=== PATIENT | female | born 1985 | race Caucasian/White ===

== ENCOUNTER 2019-03-26 13:38 | Outpatient (REF) | payer BC, SELFPAY ==
--- NOTE | 2019-03-26 13:30 | PAPFT_PTH ---
PATIENT: Jeimy Chandler LOC: [facility] U#:[id number] AGE/SX: 33/F ROOM: RE03/26/[address]: BIRDIE Jenkins : 1985 BED: DIS: 03/26/2019 SPEC #: [id number] RECD: 03/26/19 17:59 STATUS: LAURA REMitchel #: [id number] RESHMA: 03/26/19 13:[address]: Farzana Carcamo DEPT: [facility] Cytology RECD BY: Christiane Nguyen ENTERED: 03/26/19 17:59 SP TYPE: PAPFT OTHR DR: Elena Hardy Tissues: 1 - CX/ENDOCX FOR PAP SMEARS Procedures: PAP THIN PREP/UVM Screening HPV DNA PROBE Comments: [id number]
== END 2019-03-26 13:58 ==
LOC: LBN 13:38
PROVIDERS: PCP Nurse Practitioner; Visit Provider Nurse Practitioner Family
DX: Z12.4 Encounter for screening for malignant neoplasm of cervix (principal); Z11.51 Encounter for screening for human papillomavirus (HPV)
CPT/HCPCS: 88142; 87624

== ENCOUNTER 2019-04-03 02:37 | Outpatient (CLI) | payer BC, SELFPAY ==
[2019-04-03 09:07] LABS: HCT 38.1 % (36.0-46.0); HGB 12.3 g/dL (12.0-15.5); Mean Corp. HGB Concentration 32.3 g/dL (32.0-36.0); Mean Corpuscular Hemoglobin 29.6 pg (27.0-33.0); Mean Corpuscular Volume 91.8 fL (80-95); Mean Platelet Volume 10.1 fL (8.0-11.0); Platelet Count 294 x1000/uL (130-400); RBC 4.15 m/cumm (4.00-5.20); White Blood Cell Count 7.38 k/cumm (4.4-10.8)
[2019-04-03 10:08] LABS: Iron 131 ug/dL (50-175)
[2019-04-03 10:31] LABS: ALT 31 U/L (12-78); AST 24 U/L (15-37); Albumin 3.5 g/dL (3.4-5.0); Alkaline Phosphatase 64 U/L (46-116); BUN 14 mg/dL (7-18); Bilirubin, Total 0.4 mg/dL (0.2-1.0); CREATININE 0.82 mg/dL (0.55-1.02); Calcium 9.3 mg/dL (8.5-10.1); Chloride 100 mmol/L (98-107); Ferritin 51 ng/mL (8-388); Glucose 82 mg/dL (70-100); Potassium 4.1 mmol/L (3.5-5.1); Sodium 135 mmol/L (136-145); Total Protein 6.6 g/dL (6.4-8.2); Vitamin B12 1742 pg/mL (193-986)
[2019-04-03 10:47] LABS: Folate > 20.0 ng/mL (8.6-20.0)
[2019-04-06 07:52] LABS: Vitamin D 25 Total 63.4 ng/ml (30-100)
== END 2019-04-03 02:57 ==
PROVIDERS: PCP Nurse Practitioner; Visit Provider Nurse Practitioner Family
DX: E83.10 Disorder of iron metabolism, unspecified (principal); K90.9 Intestinal malabsorption, unspecified; E55.9 Vitamin D deficiency, unspecified; Z98.84 Bariatric surgery status
CPT/HCPCS: 36415; 80053; 82306; 85027; 82607; 82728; 82746; 83540

== ENCOUNTER 2020-03-23 02:30 | Outpatient (CLI) | payer OTHER, SELFPAY ==
[2020-03-23 13:36] LABS: HCT 40.1 % (36.0-46.0); HGB 12.9 g/dL (12.0-15.5); Mean Corp. HGB Concentration 32.2 g/dL (32.0-36.0); Mean Corpuscular Hemoglobin 29.6 pg (27.0-33.0); Mean Platelet Volume 9.8 fL (8.0-11.0); Platelet Count 345 x1000/uL (130-400); RBC 4.36 m/cumm (4.00-5.20); RBC Distribution Width 12.9 % (11.7-14.6); White Blood Cell Count 4.74 k/cumm (4.4-10.8)
[2020-03-23 14:47] LABS: Iron 116 ug/dL (50-170)
[2020-03-23 15:09] LABS: ALT 49 U/L (14-59); AST 32 U/L (15-37); Alkaline Phosphatase 82 U/L (46-116); Anion Gap 4.9 mmol/L (3-11); BUN 10 mg/dL (7-18); Bilirubin, Total 0.6 mg/dL (0.2-1.0); CO2 30.1 mmol/L (21.0-32.0); CREATININE 0.73 mg/dL (0.55-1.02); Calcium 9.2 mg/dL (8.5-10.1); Chloride 103 mmol/L (98-107); Ferritin 27 ng/mL (8-252); Glucose 82 mg/dL (74-106); Potassium 3.8 mmol/L (3.5-5.1); Sodium 138 mmol/L (136-145); Total Protein 6.8 g/dL (6.4-8.2); Vitamin B12 646 pg/mL (193-986)
[2020-03-23 15:11] LABS: Folate > 20.0 ng/mL (8.6-20.0)
[2020-03-24 05:05] LABS: Vitamin D 25 Total 49.6 ng/ml (30-100)
[2020-03-26 12:56] LABS: Thiamine (Vitamin B1), WB 138 nmol/L (70-180)
== END 2020-03-23 02:50 ==
PROVIDERS: PCP Nurse Practitioner; Visit Provider Nurse Practitioner Family
DX: E61.1 Iron deficiency (principal); Z98.84 Bariatric surgery status
CPT/HCPCS: 36415; 80053; 82306; 85027; 82607; 82728; 82746; 83540; 84425

== ENCOUNTER 2020-05-30 02:30 | Outpatient (CLI) | payer BC, SELFPAY ==
[2020-05-30 15:52] LABS: Kit/Specimen SENT
[2020-05-30 15:58] LABS: Abs Immature Grans 0.03 10^3/uL (0.0-0.06); Absolute Basophil Count 0.03 10^3/uL (0.0-0.2); Absolute Lymphocyte Count 2.32 10^3/uL (1.2-3.4); Absolute Monocyte Count 0.72 10^3/uL (0.1-0.8); Absolute Neutrophil Count 5.88 10^3/uL (1.2-6.7); Basophils % 0.3; Eosinophils % 1.1; HCT 38.8 % (36.0-46.0); HGB 12.7 g/dL (11.2-15.7); Immature Grans % 0.3; Lymphocytes % 25.6; MCHC 32.7 % (32.0-36.0); MCV 91.7 fL (80-95); MPV 10.7 fL (8.0-11.0); Monocytes % 7.9; Neutrophils % 64.8; Nucleated RBC 0 %; Platelet Count 287 10^3/uL (130-400); RBC 4.23 10^6/uL (3.93-5.22); RDW 12.6 % (11.7-14.6); RDW-SD 42.1 fL; WBC 9.08 10^3/uL (4.4-10.8)
[2020-05-30 17:16] LABS: *AMPHETAMINES SCREEN URINE Negative (Negative); *BARBITURATES SCREEN URINE Negative (Negative); *BENZODIAZEPINES SCREEN URINE Negative (Negative); Cannabinoids THC Negative (Negative); Cocaine Screen,Urine Negative (Negative); METHADONE URINE SCREEN Negative (Negative); OPIATES URINE SCREEN Negative (Negative)
[2020-05-30 17:24] LABS: Tricyclic Antidepressants Negative (Negative)
[2020-05-30 17:26] LABS: TSH (W/Ref FT4) 1.35 uIU/mL (0.36-3.74)
[2020-05-31 09:12] LABS: Hepatitis B Surface Ag Negative (Negative)
[2020-05-31 09:38] LABS: Rubella IgG Ab (UVM) Positive (See Note); Varicella IgG Antibody Positive (See Note)
[2020-05-31 09:49] LABS: HIV-1/2 Ag & Ab Screen Negative (Negative)
[2020-05-31 10:00] LABS: Hepatitis C Ab w Rflx HCV PCR Negative (Negative)
[2020-05-31 15:25] LABS: Chlamydia Result Negative (Negative); GC Result Negative (Negative)
[2020-06-01 11:05] LABS: Syphilis Total Ab w/Reflex Nonreactive (Nonreactive)
[2020-06-04 15:16] LABS: Buprenorphine Negative; Norbuprenorphine Negative
[2020-06-06 15:44] LABS: Specimen WB Whole Blood
== END 2020-05-30 02:50 ==
PROVIDERS: Advanced Practice Midwife; PCP Nurse Practitioner; Visit Provider Advanced Practice Midwife
DX: Z34.81 Encounter for supervision of other normal pregnancy, first trimester (principal); Z36.89 Encounter for other specified antenatal screening; Z11.4 Encounter for screening for human immunodeficiency virus [HIV]; Z11.59 Encounter for screening for other viral diseases; Z01.84 Encounter for antibody response examination; Z11.3 Encounter for screening for infections with a predominantly sexual mode of transmission
CPT/HCPCS: 36415; 80307; 81329; 86787; 86803; 86850; 86900; 86901; 87340; 87389; 87491; 87591; 84443; 85025; 86762; 86780; 87086

== ENCOUNTER 2020-07-04 01:18 | Outpatient (CLI) | payer BC, SELFPAY ==
--- NOTE | 2020-07-04 14:00 | DI.US_ITS ---
EXAM: US OB 2-3 TRIMESTER CLINICAL HISTORY: routine pnc Z34.90 SUPERVISION NORMAL TECHNIQUE: Ultrasound performed using standard protocol. COMPARISON: US OB US 2-3 TRIMESTER TRANSABD*P from 12/21/2011 FINDINGS: Ob ultrasound was performed utilizing 2nd trimester protocol. biometry is consistent with gest ational age of 17 weeks 0 days and an EDC of December 12, 2020. Placenta is posterior with no evidence of placenta previa. There is visually a normal quantity of am niotic fluid. heart rate is 153 BPM. anomaly screen is within normal limits as per the attached checklist. IMPRESSION: DATA REPOSITORY:
== END 2020-07-04 01:38 ==
PROVIDERS: PCP Nurse Practitioner; Visit Provider Advanced Practice Midwife
DX: Z34.92 Encounter for supervision of normal pregnancy, unspecified, second trimester (principal)
CPT/HCPCS: 76805

== ENCOUNTER 2020-08-12 08:02 | Outpatient (CLI) | payer BC, SELFPAY ==
[2020-08-15 06:08] LABS: Patient Race White; SARS-CoV-2 RNA Undetected (Undetected); SARS-CoV-2 Specimen Source Nasopharynx
== END 2020-08-12 08:22 ==
PROVIDERS: PCP Nurse Practitioner; Visit Provider Advanced Practice Midwife
DX: Z34.92 Encounter for supervision of normal pregnancy, unspecified, second trimester (principal); R68.89 Other general symptoms and signs; Z20.828 Contact with and (suspected) exposure to other viral communicable diseases
CPT/HCPCS: 87449; U0003

== ENCOUNTER 2020-09-26 02:53 | Outpatient (CLI) | payer BC, SELFPAY ==
[2020-09-26 10:20] LABS: HCT 35.3 % (36.0-46.0); HGB 11.5 g/dL (11.2-15.7); MCH 29.9 pg (27.0-33.0); MCHC 32.6 % (32.0-36.0); MCV 91.7 fL (80-95); MPV 9.9 fL (8.0-11.0); Platelet Count 386 10^3/uL (130-400); RBC 3.85 10^6/uL (3.93-5.22); RDW 12.8 % (11.7-14.6); WBC 9.86 10^3/uL (4.4-10.8)
[2020-09-26 10:30] LABS: Glucose,1 Hr (Glucola) 56 mg/dL (80-140)
== END 2020-09-26 03:13 ==
PROVIDERS: PCP Nurse Practitioner; Visit Provider Advanced Practice Midwife
DX: Z34.93 Encounter for supervision of normal pregnancy, unspecified, third trimester (principal); Z3A.28 28 weeks gestation of pregnancy
CPT/HCPCS: 36415; 82950; 85027

== ENCOUNTER 2020-11-28 14:37 | Outpatient (REF) | payer BC, SELFPAY ==
[2020-11-28 14:04] LABS: *AMPHETAMINES SCREEN URINE Negative (Negative); *BARBITURATES SCREEN URINE Negative (Negative); *BENZODIAZEPINES SCREEN URINE Negative (Negative); Cannabinoids THC Negative (Negative); Cocaine Screen,Urine Negative (Negative); METHADONE URINE SCREEN Negative (Negative); OPIATES URINE SCREEN Negative (Negative); Tricyclic Antidepressants Negative (Negative)
[2020-12-06 06:27] LABS: Buprenorphine Negative ng/mL (Cutoff: 5.0); Norbuprenorphine Negative ng/mL (Cutoff: 2.5)
== END 2020-11-28 14:38 | disposition home or self-care (01) ==
LOC: LBN 14:37
PROVIDERS: PCP Nurse Practitioner; Visit Provider Advanced Practice Midwife
DX: Z34.93 Encounter for supervision of normal pregnancy, unspecified, third trimester (principal)
CPT/HCPCS: 80307; 87081

== ENCOUNTER 2020-12-13 19:28 | Outpatient (REF) | payer BC, SELFPAY ==
[2020-12-13 15:04] LABS: PROTEIN 30.8 mg/dL
[2020-12-13 15:06] LABS: COMMENT (LAB VIEW ONLY) 176.62 mg/dL; Prot/Crea Ur Ratio 0.17
== END 2020-12-13 19:29 | disposition home or self-care (01) ==
LOC: NCHCN 19:28
PROVIDERS: PCP Nurse Practitioner; Visit Provider Advanced Practice Midwife
DX: R03.0 Elevated blood-pressure reading, without diagnosis of hypertension (principal)
CPT/HCPCS: 82565; 84156

== ENCOUNTER 2020-12-15 05:17 | Inpatient (IN) | payer BC, SELFPAY ==
[2020-12-15] VITALS (21 sets, daily range): BP systolic 120–167; BP diastolic 63–97; PULSE 62–96; RESP 16–20; TEMP 36.3–37.2; O2SAT 95–100
[2020-12-15] MEDS: Penicillin G POT. 5,000,000 UNITS in Normal Saline 100 ML 200 UNITS IVPB (06:08)
[2020-12-15] MEDS: Lactated Ringers 1,000 ML 125 ML IV (06:15)
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
[2020-12-15 06:16] LABS: HCT 34.2 % (36.0-46.0); HGB 10.9 g/dL (11.2-15.7); MCH 27.7 pg (27.0-33.0); MCHC 31.9 % (32.0-36.0); MPV 10.5 fL (8.0-11.0); Platelet Count 354 10^3/uL (130-400); RBC 3.93 10^6/uL (3.93-5.22); RDW 12.3 % (11.7-14.6); RDW-SD 39.5 fL; WBC 11.62 10^3/uL (4.4-10.8)
[2020-12-15 06:27] LABS: ALT 17 U/L (14-59); AST 21 U/L (15-37); Albumin 2.5 g/dL (3.4-5.0); Alkaline Phosphatase 151 U/L (46-116); BUN 9 mg/dL (7-18); Bilirubin, Total 0.3 mg/dL (0.2-1.0); CREATININE 0.7 mg/dL (0.55-1.02); Calcium 8.6 mg/dL (8.5-10.1); Chloride 105 mmol/L (98-107); Glucose 99 mg/dL (74-106); Potassium 3.9 mmol/L (3.5-5.1); Sodium 138 mmol/L (136-145); Total Protein 6.8 g/dL (6.4-8.2); Uric Acid 4.3 mg/dL (2.6-6.0)
[2020-12-15 06:35] LABS: ROM Plus Positive
[2020-12-15] MEDS: Normal Saline Flush 10 ML SYR IVP (08:07)
--- NOTE | 2020-12-15 08:20 | W.PM.OBNL1 ---
Date of service: 12/15/20 Time of Service: 08:20 Contractions Contraction Frequency(min): 2-3 minutes Intensity: Moderate/Strong Objective Abnormal lab results 12/15/20 12/15/20 Range/Units 06:00 06:10 WBC 11.62 H (4.4-10.8) 10^3/uL Hgb 10.9 L (11.2-15.7) g/dL Hct 34.2 L (36.0-46.0) % MCHC 31.9 L (32.0-36.0) % Alkaline Phosphatase 151 H (46-116) U/L Albumin 2.5 L (3.4-5.0) g/dL Temp Pulse Resp BP Pulse Ox 98.6 F 68 16 135/82 99 12/15/20 06:00 12/15/20 06:00 12/15/20 06:00 12/15/20 06:00 12/15/20 06:00 Laboratory Results WBC 11.62 10^3/uL (4.4-10.8) H 12/15/20 06:00 RBC 3.93 10^6/uL (3.93-5.22) 12/15/20 06:00 Hgb 10.9 g/dL (11.2-15.7) L 12/15/20 06:00 Hct 34.2 % (36.0-46.0) L 12/15/20 06:00 MCV 87.0 fL (80-95) 12/15/20 06:00 MCH 27.7 pg (27.0-33.0) 12/15/20 06:00 MCHC 31.9 % (32.0-36.0) L 12/15/20 06:00 RDW 12.3 % (11.7-14.6) 12/15/20 06:00 Plt Count 354 10^3/uL (130-400) 12/15/20 06:00 MPV 10.5 fL (8.0-11.0) 12/15/20 06:00 Sodium 138 mmol/L (136-145) 12/15/20 06:10 Potassium 3.9 mmol/L (3.5-5.1) 12/15/20 06:10 Chloride 105 mmol/L (98-107) 12/15/20 06:10 Carbon Dioxide 22.0 mmol/L (21.0-32.0) 12/15/20 06:10 Anion Gap 11.0 mmol/L (3-11) 12/15/20 06:10 BUN 9 mg/dL (7-18) 12/15/20 06:10 Creatinine 0.7 mg/dL (0.55-1.02) 12/15/20 06:10 Estimated GFR/1.73 m2 >= 60.00 (mL/min/1.73m2) 12/15/20 06:10 Glucose 99 mg/dL (74-106) 12/15/20 06:10 Uric Acid 4.3 mg/dL (2.6-6.0) 12/15/20 06:10 Calcium 8.6 mg/dL (8.5-10.1) 12/15/20 06:10 Total Bilirubin 0.3 mg/dL (0.2-1.0) 12/15/20 06:10 AST 21 U/L (15-37) 12/15/20 06:10 ALT 17 U/L (14-59) 12/15/20 06:10 Alkaline Phosphatase 151 U/L (46-116) H 12/15/20 06:10 Total Protein 6.8 g/dL (6.4-8.2) 12/15/20 06:10 Albumin 2.5 g/dL (3.4-5.0) L 12/15/20 06:10 Membranes Rupture Cancelled 12/15/20 05:47 COVID-19 Source Nasopharyx 12/15/20 07:20 Patient ABO/Rh O Positive 12/15/20 06:00 Antibody Screen Negative 12/15/20 06:00 Subjective Interval history since last seen: requesting epidural for pain management.KH Results Hemoglobin/Hematocrit: Hgb 10.9 g/dL (11.2-15.7) L 12/15/20 06:00 Hct 34.2 % (36.0-46.0) L 12/15/20 06:00 Abnormal Lab Findings: Abnormal Labs 12/15/20 12/15/20 06:00 06:10 WBC 11.62 H Hgb 10.9 L Hct 34.2 L MCHC 31.9 L Alkaline Phosphatase 151 H Albumin 2.5 L
[2020-12-15 08:23] LABS: Influenza A PCR Negative (Negative); Influenza B PCR Negative (Negative); RSV PCR Negative (Negative)
[2020-12-15 08:25] LABS: COVID-19 PCR Negative (Negative)
--- NOTE | 2020-12-15 09:26 | W.PM.OBNL1 ---
Date of service: 12/15/20 Time of Service: 09:26 Pelvic Exam Dilation: 6 Effacement (%): 90 station: -1 Position: ANGELA Cervix Position: mid Consistency: soft Vaginal Exam Presentation: Cephalic Contractions Monitor Mode: Palpation Contraction Frequency(min): 2-3 Contraction Duration(sec): 60-80 Intensity: Moderate/Strong Fetus A Monitor: External (US) Heart Rate Baseline: 125 Variability: Moderate (6-25 BPM) Categories: Category I Accelerations: Present Assessment and Plan Assessment and plan (1) Normal labor: Status: Acute (2) GBS (group B Streptococcus carrier), +RV culture, currently : Start date: 12/15/20 Start time: 09:29 Status: Acute Assessment and plan: Dose 2 of PCN due at 1015. continue present management.KH Objective Abnormal lab results 12/15/20 12/15/20 Range/Units 06:00 06:10 WBC 11.62 H (4.4-10.8) 10^3/uL Hgb 10.9 L (11.2-15.7) g/dL Hct 34.2 L (36.0-46.0) % MCHC 31.9 L (32.0-36.0) % Alkaline Phosphatase 151 H (46-116) U/L Albumin 2.5 L (3.4-5.0) g/dL Temp Pulse Resp BP Pulse Ox 98.6 F 68 16 135/82 99 12/15/20 06:00 12/15/20 06:00 12/15/20 06:00 12/15/20 06:00 12/15/20 06:00 Laboratory Results WBC 11.62 10^3/uL (4.4-10.8) H 12/15/20 06:00 RBC 3.93 10^6/uL (3.93-5.22) 12/15/20 06:00 Hgb 10.9 g/dL (11.2-15.7) L 12/15/20 06:00 Hct 34.2 % (36.0-46.0) L 12/15/20 06:00 MCV 87.0 fL (80-95) 12/15/20 06:00 MCH 27.7 pg (27.0-33.0) 12/15/20 06:00 MCHC 31.9 % (32.0-36.0) L 12/15/20 06:00 RDW 12.3 % (11.7-14.6) 12/15/20 06:00 Plt Count 354 10^3/uL (130-400) 12/15/20 06:00 MPV 10.5 fL (8.0-11.0) 12/15/20 06:00 Sodium 138 mmol/L (136-145) 12/15/20 06:10 Potassium 3.9 mmol/L (3.5-5.1) 12/15/20 06:10 Chloride 105 mmol/L (98-107) 12/15/20 06:10 Carbon Dioxide 22.0 mmol/L (21.0-32.0) 12/15/20 06:10 Anion Gap 11.0 mmol/L (3-11) 12/15/20 06:10 BUN 9 mg/dL (7-18) 12/15/20 06:10 Creatinine 0.7 mg/dL (0.55-1.02) 12/15/20 06:10 Estimated GFR/1.73 m2 >= 60.00 (mL/min/1.73m2) 12/15/20 06:10 Glucose 99 mg/dL (74-106) 12/15/20 06:10 Uric Acid 4.3 mg/dL (2.6-6.0) 12/15/20 06:10 Calcium 8.6 mg/dL (8.5-10.1) 12/15/20 06:10 Total Bilirubin 0.3 mg/dL (0.2-1.0) 12/15/20 06:10 AST 21 U/L (15-37) 12/15/20 06:10 ALT 17 U/L (14-59) 12/15/20 06:10 Alkaline Phosphatase 151 U/L (46-116) H 12/15/20 06:10 Total Protein 6.8 g/dL (6.4-8.2) 12/15/20 06:10 Albumin 2.5 g/dL (3.4-5.0) L 12/15/20 06:10 Membranes Rupture Cancelled 12/15/20 05:47 COVID-19 Source Nasopharyx 12/15/20 07:20 SARS-CoV-2 (PCR) Negative (Negative) 12/15/20 07:20 Influenza Type A (PCR) Negative (Negative) 12/15/20 07:20 Influenza Type B (PCR) Negative (Negative) 12/15/20 07:20 RSV (PCR) Negative (Negative) 12/15/20 07:20 Patient ABO/Rh O Positive 12/15/20 06:00 Antibody Screen Negative 12/15/20 06:00 Subjective Interval history since last seen: much more comfortable since eipdural, is hoping to nap. Solomon (S.O.) is at bedside and is very supportive.KH Results Hemoglobin/Hematocrit: Hgb 10.9 g/dL (11.2-15.7) L 12/15/20 06:00 Hct 34.2 % (36.0-46.0) L 12/15/20 06:00 Abnormal Lab Findings: Abnormal Labs 12/15/20 12/15/20 06:00 06:10 WBC 11.62 H Hgb 10.9 L Hct 34.2 L MCHC 31.9 L Alkaline Phosphatase 151 H Albumin 2.5 L
[2020-12-15] MEDS: FentaNYL/ROPIvacaine 2 mcg/ml and 0.1% 200 ML CADD Cassette EP (09:49)
[2020-12-15] MEDS: Penicillin G POT. 3,000,000 UNITS in Normal Saline 50 ML 100 UNITS IVPB (10:13)
[2020-12-15] MEDS: Oxytocin 10 UNITS/ML VIAL IM (13:20)
--- NOTE | 2020-12-15 13:41 | W.OBDELIVERY ---
Date of service: 12/15/20 Time of Service: 13:41 OB Labor/ Delivery Information Providers Nurse [employer] Labor: Kylah Montenegro Nurse: Nupur Lopez Nurse: Devika Monson Labor/Delivery Information Number of Babies in Womb: 1 Steroids Given: None Reason Steroids Not Administered: N/A Group Beta Strep: Positive Antibiotics Administered: Yes Number of Doses of Antibiotics: 2 Rubella Status: Immune Blood Type: O+ Varicella Immunity: Immune Maternal Complications: None Shoulder Dystocia: No Note: 12/15/20: Live female delivers ANGELA over intact perineum, shoulders deliver with gentle downward traction and then gentle upward traction, Mother reaches to help deliver her baby onto her abdomen skin to skin.KH Stages of Labor Onset of Labor Date: 12/15/20 Onset of Labor Time: 03:00 Complete Dilatation Date: 12/15/20 Complete Dilatation Time: 11:50 Labor - Stage 1 Duration: 0 minutes ROM Baby A: 12/15/20 ROM Baby A: 03:00 Infant Delivery Date-Baby A: 12/15/20 Infant Delivery Time-Baby A: 13:16 Labor Stage 2 Duration: 1 hours and 26 minutes Placenta Delivery Date-Baby A: 12/15/20 Placenta Delivery Time-Baby A: 13:24 Labor-Stage 3 Duration: 8 minutes Total Length of Labor-Baby A: 10 hours and 16 minutes Placenta Cultured: No Placenta Status: Delivered Baby A Gender: Female Gestational Status: Term (39-41.6 wks) Gestational Age in Weeks/Days: 40 Weeks and 0 Days Score-1 Minute Interval(Baby A) Heart Rate-1 minute: 100 BPM or Greater Respiratory Effort- 1 minute: Spontaneous/Strong Cry Muscle Tone-1 minute: Active Movement Reflex Response-1 minute: Prompt Response Color-1 minute: Pallor or Cyanosis Total Score-1 minute: 8 Score-5 Minute Interval(Baby A) Heart Rate- 5 minute: 100 BPM or Greater Respiratory Effort-5 minute: Spontaneous/Strong Cry Muscle Tone-5 minute: Active Movement Reflex Response-5 minute: Prompt Response Color-5 minute: Bluish Hands or Feet Total Score- 5 minute: 9
[2020-12-15] MEDS: Acetaminophen 325 MG TAB 650 MG PO ×2 (15:44→20:40)
[2020-12-16] MEDS: Acetaminophen 325 MG TAB 650 MG PO ×2 (02:17→07:49)
[2020-12-16 04:10] VITALS: BP 137/85; PULSE 61; RESP 18; TEMP 37; O2SAT 96
[2020-12-16 07:40] VITALS: BP 141/100; PULSE 73; RESP 18; TEMP 36.8; O2SAT 97
[2020-12-16 07:43] VITALS: BP 132/90; PULSE 66
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
== END 2020-12-16 15:45 | disposition home or self-care (01) | DRG 807 ==
PROVIDERS: Admitting Provider Advanced Practice Midwife; PCP Nurse Practitioner; Visit Provider Advanced Practice Midwife
DX: O99.824 Streptococcus B carrier state complicating childbirth (principal); Z37.0 Single live birth; Z3A.39 39 weeks gestation of pregnancy
CPT/HCPCS: 80053; 84112; 85027; 86850; 86900; 86901; 84550; J2540; J2590

== ENCOUNTER 2021-08-02 21:46 | Outpatient (REF) | payer BC, SELFPAY ==
[2021-08-04 21:34] LABS: COVID-19 RT-PCR UVMMC Result Negative (Negative)
== END 2021-08-02 21:47 | disposition home or self-care (01) ==
LOC: LBN 21:46
PROVIDERS: PCP Nurse Practitioner; Visit Provider Nurse Practitioner Family
DX: Z20.822 Contact with and (suspected) exposure to COVID-19 (principal); J06.9 Acute upper respiratory infection, unspecified
CPT/HCPCS: U0003

== ENCOUNTER 2023-01-08 02:29 | Outpatient (CLI) | payer BC, SELFPAY ==
[2023-01-08 10:06] LABS: HCT 38.7 % (36.0-46.0); HGB 12.2 g/dL (11.2-15.7); MCH 27.6 pg (27.0-33.0); MCHC 31.5 % (32.0-36.0); MCV 88 fL (80-95); MPV 9.3 fL (8.0-11.0); Platelet Count 371 10^3/uL (130-400); RBC 4.42 10^6/uL (3.93-5.22); RDW 13.3 % (11.7-14.6); RDW-SD 43.3 fL; WBC 7.34 10^3/uL (4.4-10.8)
[2023-01-08 10:41] LABS: TSH (W/Ref FT4) 2.02 uIU/mL (0.36-3.74)
== END 2023-01-08 02:30 | disposition home or self-care (01) ==
PROVIDERS: PCP Nurse Practitioner; Visit Provider Nurse Practitioner Women's Health
DX: R53.83 Other fatigue (principal)
CPT/HCPCS: 36415; 85027; 84443

== ENCOUNTER 2023-07-01 01:53 | Outpatient (CLI) | payer BC, SELFPAY ==
[2023-07-01 08:01] LABS: Abs Immature Grans 0.01 10^3/uL (0.0-0.06); Absolute Basophil Count 0.04 10^3/uL (0.0-0.2); Absolute Eosinophil Count 0.06 10^3/uL (0.0-0.7); Absolute Lymphocyte Count 1.74 10^3/uL (1.2-3.4); Absolute Monocyte Count 0.55 10^3/uL (0.1-0.8); Absolute Neutrophil Count 2.47 10^3/uL (1.2-6.7); Basophils % 0.8; Eosinophils % 1.2; HGB 10.5 g/dL (11.2-15.7); Immature Grans % 0.2; Lymphocytes % 35.7; MCH 25.3 pg (27.0-33.0); MCV 84 fL (80-95); MPV 9.3 fL (8.0-11.0); Monocytes % 11.3; Neutrophils % 50.8; Platelet Count 333 10^3/uL (130-400); RBC 4.15 10^6/uL (3.93-5.22); RDW 14.4 % (11.7-14.6); RDW-SD 44.2 fL; WBC 4.87 10^3/uL (4.4-10.8)
[2023-07-01 08:49] LABS: ALT 43 U/L (14-59); AST 42 U/L (15-37); Albumin 3.5 g/dL (3.4-5.0); Alkaline Phosphatase 82 U/L (46-116); Anion Gap 6.7 mmol/L (3-11); BUN 14 mg/dL (7-18); Bilirubin, Total 0.5 mg/dL (0.2-1.0); CO2 27.3 mmol/L (21.0-32.0); CREATININE 0.7 mg/dL (0.55-1.02); Calcium 8.5 mg/dL (8.5-10.1); Calculated LDL 53 mg/dL (<100); Chloride 104 mmol/L (98-107); Cholesterol 148 mg/dL (<200); Estimated GFR 114.16 (mL/min/1.73m2); Ferritin 6 ng/mL (8-252); Glucose 93 mg/dL (74-106); HDL Cholesterol 87 mg/dL (40-60); Potassium 3.8 mmol/L (3.5-5.1); Sodium 138 mmol/L (136-145); TSH (W/Ref FT4) 2.58 uIU/mL (0.36-3.74); Triglyceride 43 mg/dL (<150)
[2023-07-01 09:09] LABS: C-Reactive Protein 0.07 mg/dL (0.0-0.3)
[2023-07-01 09:58] LABS: Vitamin D 25 Total 33.5 ng/mL (30-100)
[2023-07-01 17:01] LABS: Rheumatoid Factor <8.6 IU/mL (<12.0)
[2023-07-02 10:26] LABS: Lyme Ab w Rflx to Lyme Confirm Negative (Negative)
[2023-07-03 14:13] LABS: ANA Interpretation Negative (Negative)
[2023-07-04 00:34] LABS: Anaplasma phagocytophilum Negative (Negative); B. miyamotoi PCR Negative (Negative); Babesia divergens/MO-1 Negative (Negative); Babesia duncani Negative (Negative); Babesia microti Negative (Negative); Ehrlichia chaffeensis Negative (Negative); Ehrlichia ewingii/canis Negative (Negative); Ehrlichia muris eauclairensis Negative (Negative)
== END 2023-07-01 01:54 | disposition home or self-care (01) ==
LOC: LBO 01:53
PROVIDERS: Absent Provider Nurse Practitioner; PCP Physician Assistant; Visit Provider Nurse Practitioner
DX: R52 Pain, unspecified (principal); R53.83 Other fatigue
CPT/HCPCS: 36415; 80053; 80061; 82306; 87798; 82728; 84443; 85025; 86038; 86140; 86431; 86618

== ENCOUNTER 2024-02-12 09:50 | Outpatient (REF) | payer BC, SELFPAY ==
--- NOTE | 2024-02-12 09:10 | PAPFT_PTH ---
PATIENT: Jeimy Chandler LOC: [facility] U#:[id number] AGE/SX: 38/F ROOM: RE02/12/[address]: Flakita Araya NP : 1985 BED: DIS: 02/12/2024 SPEC #: [id number] RECD: 02/12/24 12:46 STATUS: LAURA REMitchel #: [id number] RESHMA: 02/12/24 09:[address]: Flakita Araya NP DEPT: [facility] Cytology RECD BY: Christiane Nguyen ENTERED: 02/12/24 12:46 SP TYPE: PAPFT OTHR DR: Philippe Alfaro Tissues: 1 - CX/ENDOCX FOR PAP SMEARS Procedures: PAP THIN PREP/UVM Screening HPV DNA PROBE Comments: [id number]
== END 2024-02-12 09:51 | disposition home or self-care (01) ==
LOC: LBN 09:50
PROVIDERS: PCP Physician Assistant; Visit Provider Nurse Practitioner Women's Health
DX: Z12.4 Encounter for screening for malignant neoplasm of cervix (principal); D26.0 Other benign neoplasm of cervix uteri
CPT/HCPCS: 88142; 87624

== ENCOUNTER 2025-03-12 01:33 | Outpatient (CLI) | payer BC, SELFPAY ==
[2025-03-12 10:26] LABS: HCT 41.1 % (36.0-46.0); HGB 13.4 g/dL (11.2-15.7); MCH 30.2 pg (27.0-33.0); MCHC 32.6 % (32.0-36.0); MCV 93 fL (80-95); MPV 9.4 fL (8.0-11.0); Platelet Count 328 10^3/uL (130-400); RBC 4.43 10^6/uL (3.93-5.22); RDW 12.5 % (11.7-14.6); RDW-SD 42.7 fL; WBC 5.43 10^3/uL (4.4-10.8)
[2025-03-12 11:05] LABS: Iron 82 ug/dL (50-170); Total Iron Binding Capacity 385 ug/dL (250-450); Transferrin Sat 21 % (15-50)
[2025-03-12 11:14] LABS: Folate > 20.0 ng/mL (8.6-20.0); Glucose 87 mg/dL (74-106)
[2025-03-12 11:25] LABS: ALT 34 U/L (14-59); AST 28 U/L (15-37); Albumin 4.1 g/dL (3.4-5.0); Alkaline Phosphatase 66 U/L (46-116); Anion Gap 6.1 mmol/L (3-11); BUN 12 mg/dL (7-18); Bilirubin, Total 0.5 mg/dL (0.2-1.0); CO2 30.9 mmol/L (21.0-32.0); CREATININE 0.6 mg/dL (0.55-1.02); Calcium 9.5 mg/dL (8.5-10.1); Calculated LDL 50 mg/dL (<100); Chloride 101 mmol/L (98-107); Cholesterol 144 mg/dL (<200); Estimated GFR 117.02 (mL/min/1.73m2); Ferritin 63 ng/mL (8-252); Glucose 86 mg/dL (74-106); HDL Cholesterol 86 mg/dL (>or=50); Potassium 4.1 mmol/L (3.5-5.1); Sodium 138 mmol/L (136-145); Total Protein 7.4 g/dL (6.4-8.2); Triglyceride 44 mg/dL (<150); Vitamin B12 662 pg/mL (193-986)
[2025-03-12 11:39] LABS: Vitamin D 25 Total 37 ng/mL (30-100)
[2025-03-12 18:31] LABS: Parathyroid Hormone,Intact 59 pg/mL (19-88)
== END 2025-03-12 01:34 | disposition home or self-care (01) ==
LOC: LBO 01:33
PROVIDERS: PCP Nurse Practitioner; Visit Provider Nurse Practitioner Family
DX: Z98.84 Bariatric surgery status (principal); Z00.00 Encounter for general adult medical examination without abnormal findings
CPT/HCPCS: 36415; 80053; 80061; 82306; 82947; 85027; 82607; 82728; 82746; 83540; 83550; 83970; 84590

== ENCOUNTER 2025-06-22 11:46 | Outpatient (REF) | payer BC, SELFPAY ==
--- NOTE | 2025-06-22 11:35 | CER_PTH ---
PATIENT: Jeimy Chandler LOC: [facility] U#:[id number] AGE/SX: 39/F ROOM: RE06/22/[address]: Flakita Araya NP : 1985 BED: DIS: 06/22/2025 SPEC #: [id number] RECD: 06/22/25 12:43 STATUS: LAURA REMitchel #: [id number] RESHMA: 06/22/25 11:[address]: Marshal GLASER,Flakita DEPT: Surgical Specimen RECD BY: Christiane Nguyen ENTERED: 06/22/25 12:44 SP TYPE: CER OTHR DR: Rosa Maria Tristan APRN Tissues: 1 - CERVICAL BIOPSY Procedures: GROSS AND MICRO LEVEL 4 Comments: [id number]
[2025-06-23 12:01] LABS: Chlamydia Result Negative (Negative); GC Result Negative (Negative)
== END 2025-06-22 11:47 | disposition home or self-care (01) ==
LOC: LBN 11:46
PROVIDERS: PCP Nurse Practitioner; Visit Provider Nurse Practitioner Women's Health
DX: N76.0 Acute vaginitis (principal); N93.0 Postcoital and contact bleeding; Z11.3 Encounter for screening for infections with a predominantly sexual mode of transmission; N84.1 Polyp of cervix uteri
CPT/HCPCS: 87491; 87591; 88305; 87480; 87510; 87660

== ENCOUNTER 2025-07-07 11:22 | Outpatient (REF) | payer BC, SELFPAY | END 2025-07-07 11:23 | disposition home or self-care (01) | LOC: LBN 11:22 | PROVIDERS: PCP Nurse Practitioner; Visit Provider Nurse Practitioner Family | DX: R35.0 Frequency of micturition (principal); R30.9 Painful micturition, unspecified | CPT/HCPCS: 87077; 87086; 87186 ==